=== PATIENT | female | born 1985 | race Caucasian/White ===

== ENCOUNTER 2019-11-23 13:00 | Outpatient (CLI) | payer SELFPAY ==
--- NOTE | 2019-11-23 13:09 | MM_ITS ---
WS: [id number] DIAGNOSTIC BILATERAL DIGITAL MAMMOGRAM WITH CAD LEFT breast ultrasound, limited HISTORY: BREAST Tenderness; lump UPPER INNER QUADRANT LT BREAST COMPARISON: None available. TECHNIQUE: Bilateral craniocaudad, mediolateral oblique, and mediolateral views are submitted. Spot c ompression LEFT MLO. Computer aided detection utilized. Breast composition: The breasts are heterogeneously dense, which may obscure small masses. No masses or distortion. No calcifications. Ultrasound to follow in the area of palpable abnormality. LEFT breast ultrasound, limited. Ultrasound is directed to the posterior LEFT breast along the 10:00 axis. There is no soft tissue abn ormality. Normal appearance of the muscles and breast tissue. MM/[id number] IMPRESSION: BI-RADS: 2-Benign FOLLOW UP: Age 40
== END 2019-11-23 13:01 | disposition home or self-care (01) ==
LOC: RADSHAW 13:05
PROVIDERS: Visit Provider Nurse Practitioner Family
DX: N64.4 Mastodynia (principal); N63.22 Unspecified lump in the left breast, upper inner quadrant
CPT/HCPCS: 76642; 77066

== ENCOUNTER → 2019-12-14 08:17 | Outpatient (BNVA) | payer OTHER, SELFPAY | PROVIDERS: Visit Provider Nurse Practitioner Family | DX: Z20.828 Contact with and (suspected) exposure to other viral communicable diseases (principal) | CPT/HCPCS: 87635 ==